=== PATIENT | female | born 1965 | race Caucasian/White ===

== ENCOUNTER 2023-04-19 00:52 | Observation (INO) | payer BC ==
[2023-04-19] MEDS ORDERED: Nitroglycerin 2% Ointment 1 INCH/1 GM Packet ONE (01:39)
[2023-04-19] MEDS ORDERED: Aspirin Chewable 81 MG TAB ONE (01:40)
[2023-04-19 03:44] LABS: #Basophils 0.1 thou/uL (0.0-0.2); #Eosinphils 0.2 thou/uL (0.0-0.7); #Monocytes 0.5 thou/uL (0.11-0.59); #Neutrophils 5.7 thou/uL (1.40-6.50); %Basophils 0.6 % (0.0-1.0); %Eosinophils 2.2 % (0.0-10.0); %Lymphocytes 27.2 % (21.0-51.0); %Monocytes 5.8 % (0.0-10.0); %Neutrophils 63.9 % (42.0-75.0); Hematocrit 39.9 % (36.0-47.0); Hemoglobin 13.6 g/dL (12.0-16.0); Mean Corpuscular HGB CONC 34.1 g/dL (32.0-36.0); Mean Corpuscular Hemoglobin 32.6 pg (27.0-31.0); Mean Corpuscular Volume 95.7 fl (78.0-98.0); Mean Platelet Volume 11.7 fL (7.4-10.4); Platelet Count 216 10x3/uL (130-400); RBC Distribution Width 12.7 % (11.5-14.5); Red Blood Cell (RBC) Count 4.17 mill/uL (4.20-5.40)
[2023-04-19 03:59] LABS: ALT (SGPT) 19 U/L (8-55); AST (SGOT) 21 U/L (5-34); Albumin 4.7 g/dL (3.5-5.0); Alkaline Phosphatase 70 U/L (40-110); Anion Gap 17 mmol/L (10-20); BUN (Urea Nitrogen) 26 mg/dL (9.8-20.1); Bilirubin, Total 0.4 mg/dL (0.2-1.2); Calc. Creatinine Clearance 0 mL/min (70-130); Calcium 9.9 mg/dL (7.8-10.44); Carbon Dioxide 17 mmol/L (22-29); Chloride 107 mmol/L (98-107); Estimated GFR 63; Glucose 96 mg/dL (70-105); Magnesium 2.1 mg/dL (1.6-2.6); Protein, Total 7.7 g/dL (6.0-8.3); Sodium 137 mmol/L (136-145)
[2023-04-19 04:03] LABS: Troponin I 0.015 ng/mL (< 0.028)
[2023-04-19 04:35] LABS: Bacteria/HPF None Seen HPF (None Seen); Bilirubin Negative (Negative); Blood, Urine 1+ (Negative); CAUTI Indications for Culture Dysuria,urgency,freq; Clarity Clear (Clear); Glucose, Urine (Dipstick) Normal (Negative); Ketone, Urine Negative (Negative); Leukocyte 250 Leu/uL (Negative); Nitrite Negative (Negative); Protein, Urine (Dipstick) Negative (Neg-Trace); RBC/HPF 0-3 HPF (0-3); Specific Gravity, Urine 1.028 (1.002-1.036); Squamous Epithelial 0-3 HPF (0-3); Urobilinogen Normal mg/dL (Less than 2); WBC/HPF 21-50 HPF (0-3)
[2023-04-19 04:42] LABS: Urine Culture Reflex Yes Yes
[2023-04-19] MEDS ORDERED: Ondansetron ODT 4 MG TAB PO PRN (04:55)
[2023-04-19] MEDS ORDERED: Ondansetron PF 4 MG/2 ML Vial IVP PRN (04:55)
[2023-04-19] MEDS ORDERED: Nitroglycerin 0.4 MG TAB (25 Tab Bottle) SL PRN (04:55)
[2023-04-19] MEDS ORDERED: Acetaminophen 650 MG Suppository PR PRN (04:55)
[2023-04-19 05:31] VITALS: BMI 34.0
[2023-04-19] MEDS ORDERED: Acetaminophen 325 MG TAB ONE (05:40)
[2023-04-19] MEDS: Acetaminophen 325 MG TAB PO PRN (05:45)
[2023-04-19 06:05] LABS: Troponin I Less than 0.010 ng/mL (< 0.028)
[2023-04-19] MEDS: Aspirin Chewable 81 MG TAB PO SCH (07:17)
[2023-04-19 08:10] LABS: Troponin I Less than 0.010 ng/mL (< 0.028)
[2023-04-19 11:37] VITALS: TEMP 98.4
[2023-04-19] MEDS ORDERED: Regadenoson 0.4 MG/5 ML SYRINGE ONE (12:34)
[2023-04-19 16:00] VITALS: BP 129/71
== END 2023-04-19 17:07 | disposition home or self-care (01) ==
LOC: ERS 00:52 → EDBD 00:52 → ERHOLD 04:34 → 2SW 12:36
PROVIDERS: ADMIT Student in an Organized Health Care Education/Training Program; ATTEND Hospitalist
PROC: B246ZZZ Ultrasonography of Right and Left Heart (ICD-10-PCS; principal; 2023-04-19)
DX: R07.89 Other chest pain (principal); R00.2 Palpitations; R91.1 Solitary pulmonary nodule; I10 Essential (primary) hypertension; E78.5 Hyperlipidemia, unspecified; I08.1 Rheumatic disorders of both mitral and tricuspid valves; Z79.899 Other long term (current) drug therapy; Z90.710 Acquired absence of both cervix and uterus
CPT/HCPCS: 36415; 71045; 71275; 74174; 78452; 80053; 81001; 83690; 83735; 83880; 84443; 84484; 85025; 85379; 87077; 87086; 93017; 93306; A9502; G0378; J2785